=== PATIENT | male | born 1985 | race Caucasian/White ===

== ENCOUNTER 2019-06-15 21:31 | Emergency (ER) | payer BC, SELFPAY ==
[2019-06-15] VITALS (15 sets, daily range): BP systolic 116–137; BP diastolic 66–91; PULSE 70–92; RESP 12–25; TEMP 36.6; O2SAT 95–100
--- NOTE | 2019-06-15 21:47 | W.ED.GENAD ---
Discharge Plan Disposition Patient Disposition: HOME Condition: Stable Discharge Details Chief Complaint: Dizzy/Sync Clinical Impression: Syncope Primary Care Provider: Unknown,Unknown ED Provider: Reyna Morales Home Meds and New Rx's Prescriptions: Continued omeprazole 20 MG capsule,delayed release(DR/EC) 20 mg PO DAILY AM RF: 0 ondansetron 4 MG tablet,disintegrating 4 mg PO Q6H PRNQty: 8 RF: 0 Discharge Instructions Instructions: Syncope (ED) Additional Instructions: Follow up with primary care provider in 3-5 days. Return to ED sooner if any worsening or concerns. Increase oral fluids. Return to the ED immediately if any recurrent syncopal episodes, chest pain or shortness of breath. Stand Alone Forms: Work Release Medical Decision Making 33-year-old male presents to the ER after a syncopal episode which occurred earlier this afternoon. Patient states that he was sitting at his desk became lightheaded dizzy and diaphoretic and awoke slumped over onto the desk. He denies any chest pain or shortness of breath or headache. No incontinence of bowel or bladder. Upon arrival he says he feels okay. He has had 1 similar episode approximately 4 years previously. None since then. Denies any intolerance to exercise. No significant past medical history. He states his mom is diabetic and has some weird heart thing. Denies any abdominal pain nausea vomiting diarrhea or dysuria. TECHNIQUE: Imaging protocol: XR of the chest Views: 2 views. COMPARISON: No relevant prior studies available. FINDINGS: Lungs: Lungs are adequately inflated and symmetric. No focal consolidation or pulmonary edema. Pleural space: No pleural effusion. No pneumothorax. Heart/Mediastinum: Cardiomediastinal contours within normal limits. Bones/joints: No acute osseous finding. Soft tissues: No focal soft tissue abnormailty. IMPRESSION: No acute findings. Thank you for allowing us to participate in the care of your patient. Dictated and Authenticated by: Viraj Bueno MD 06/15/2019 10:43 PM Eastern Time ([place] & [place]) TECHNIQUE: Imaging protocol: Computed tomography of the head without contrast. COMPARISON: No relevant prior studies available. FINDINGS: Brain: Normal volume for age. No hemorrhage. No significant white matter disease. No edema. Ventricles: Unremarkable. No ventriculomegaly. Bones/joints: Unremarkable. No acute fracture. Sinuses: Mucous retention cyst noted within the right maxillary sinus. Paranasal sinuses otherwise well aerated without air-fluid level. Mastoid air cells: No mastoid effusion. Orbits: Unremarkable. Soft tissues: Mild posterior, midline subcutaneous soft tissue edema along the superior skull. IMPRESSION: No acute intracranial finding. Thank you for allowing us to participate in the care of your patient. Dictated and Authenticated by: Viraj Bueno MD 06/15/2019 10:46 PM Eastern Time ([place] & [place]) At this time there is no specific reason to explain his syncopal episode. Instructed to follow-up with his PCP and to return if he has any recurrent syncopal episodes or chest pain or concerns. His labs including troponin were within normal limits. CT head and chest x-ray were also within normal limits. EKG was reviewed by Dr. Beal and is normal sinus rhythm no ectopy no ST elevation. This text was generated using e[employer]arm[employer] dictation system, please disregard any oddities of phrase or misspellings. Patient remained hemodynamically stable throughout stay he is alert and oriented steady gait upon discharge. At this time I feel it is safe for him to be discharged home. Lab Data Lab results reviewed: Yes I reviewed the patient's lab results. Labs: ECG Data Attestation: I personally reviewed and interpreted this ECG (s) as follows: Prior ECG tracings: not available for review HPI General Mode of arrival: ambulatory. Date/Time Provider Initiated Documentation: 06/15/19 21:39. Limitations to Documentation: no limitations. Information obtained by: patient. HPI Narrative: 33-year-old male presents to the ER after a syncopal episode which occurred earlier this afternoon. Patient states that he was sitting at his desk became lightheaded dizzy and diaphoretic and awoke slumped over onto the desk. He denies any chest pain or shortness of breath or headache. No incontinence of bowel or bladder. Upon arrival he says he feels okay. He has had 1 similar episode approximately 4 years previously. None since then. Denies any intolerance to exercise. No significant past medical history. He states his mom is diabetic and has some weird heart thing. Denies any abdominal pain nausea vomiting diarrhea or dysuria. Related Data Home Medications Medication Instructions Recorded Confirmed omeprazole 20 mg PO DAILY AM 03/24/18 03/24/18 ondansetron 4 mg PO Q6H PRN #8 tabef 07/17/17 Previous Rx's Medication Instructions Recorded ondansetron 4 mg PO Q6H PRN #8 tabef 07/17/17 Allergies Allergy/AdvReac Type Severity Reaction Status Date / Time albuterol Allergy Unverified 07/16/17 22:15 General Stated Complaint: Dizzy/Sync LES: 3 Review of Systems Narrative: Constitutional: Negative for weight loss, alert and oriented, well groomed, normal body habitus, appears comfortable. HEENT: Denies trauma, headaches, blurry vision, nasal discharge, sore throat, trouble swallowing. Chest: Denies chest pain, palpitations, irregular rhythm, hypertension. Respiratory: Denies Shortness of breath, cough, hemoptysis. GI: Denies abdominal pain, nausea, vomiting, diarrhea, constipation. : Denies dysuria, hematuria, flank pain, rectal bleeding. Neuro: Denies blurry vision, weakness, headache or facial numbness. Positive syncopal episode, positive lightheadedness. Hematologic: Denies easy bruising, intolerance to heat or cold, hair loss. PENDING SALE TO [facility] Social History Smoking/Tobacco Use Status: Current-Occasional Tobacco Type: cigars Drug use: Never Do you feel safe in your relationship?: Yes Exam Narrative Exam Narrative: Constitutional: Allert and oriented x3. Appears stated age. Normal body habitus. Head: Normocephalic, no trauma. Eyes: Pupils PERRLA, Red reflex noted, EOM's intact. Eyelids symmetrical withour lesions, discharge, or swelling. ENT: Bilateral TM's WNL, External ear normal to inspection, no mastoid TTP, swelling, or erythema, Nasal turbinates WNL, no nasal discharge. Normal dentition, Posterior pharynx WNL, no exudate. Chest: RRR, Normal S1, S2, distal pulses intact. Resp: Lungs clear to auscultation bilaterally, no wheezes, rales, or rhonchi. Musculoskeletal: Normal gait, 5/5 strength to all four extremities. Skin: No suspicious rashes or lesions. Capillary refill ?2 sec. Neurologic: Cranial nerves II-XII intact. Alert and oriented x 3. DTR's intact. Hematologic/Lymphatic: No ecchymosis, no lymphadenopathy. Course Vital Signs Vital signs: Vital Signs Temperature 36.6 C 06/15/19 21:36 Pulse 76 06/15/19 21:36 Respiratory Rate 18 06/15/19 21:36 Blood Pressure 135/76 06/15/19 21:36 Pulse Oximetry 99 06/15/19 21:36 Temperature 36.6 C 06/15/19 21:36 Temperature Source Skin 06/15/19 21:36 Pulse 76 06/15/19 21:36 Respiratory Rate 18 06/15/19 21:36 Respiratory Effort 06/15/19 21:36 Respiratory Depth Normal 06/15/19 21:36 Blood Pressure 135/76 06/15/19 21:36 Pulse Oximetry 99 06/15/19 21:36 Oxygen Delivery Method Room Air 06/15/19 21:36 Oxygen Flow Rate 0 06/15/19 21:36
[2019-06-15 22:23] LABS: Abs Immature Grans 0.02 k/cumm (0.0-0.09); Absolute Basophil Count 0.02 k/cumm (0.0-0.2); Absolute Eosinophil Count 0.18 k/cumm (0.0-0.7); Absolute Lymphocyte Count 2.38 k/cumm (1.2-3.4); Absolute Monocyte Count 0.76 k/cumm (0.11-0.7); Absolute Neutrophil Count 4.53 k/cumm (1.2-6.7); Basophils % 0.3; Eosinophils % 2.3; HCT 49.6 % (40.0-50.0); HGB 16.9 g/dL (13.5-17.5); Immature Grans % 0.3 %; Lymphocytes % 30.2; Mean Corp. HGB Concentration 34.1 g/dL (32.0-36.0); Mean Corpuscular Hemoglobin 28.4 pg (27.0-33.0); Mean Corpuscular Volume 83.4 fL (80-95); Mean Platelet Volume 9.4 fL (8.0-11.0); Monocytes % 9.6; Neutrophils % 57.3; Platelet Count 285 x1000/uL (130-400); RBC 5.95 m/cumm (4.50-6.00); RBC Distribution Width 12.4 % (11.8-14.1); White Blood Cell Count 7.89 k/cumm (4.4-10.8)
[2019-06-15 22:27] LABS: Bilirubin Negative (Negative); Blood Negative (Negative); Clarity Clear (Clear); Glucose Negative (Negative); Ketones Negative (Negative); Leukocyte Esterase Negative (Negative); Nitrite Negative (Negative); Urobilinogen 0.2 EU/dL (Up TO 0.2)
--- NOTE | 2019-06-15 22:29 | DI.RAD_ITS ---
EXAM: XR CHEST 2V PA LATERAL XR CHEST 2V PA LATERAL CLINICAL HISTORY: Syncope Syncope TECHNIQUE: 2D digital imaging was performed. COMPARISON: No exams were available for comparison FINDINGS: The heart is not enlarged. The lungs are clear and well expanded. No pleural effusion seen. Mediastin al contours appear intact. IMPRESSION: Normal chest
[2019-06-15 22:35] LABS: *AMPHETAMINES SCREEN URINE Negative (Negative); *BARBITURATES SCREEN URINE Negative (Negative); *BENZODIAZEPINES SCREEN URINE Negative (Negative); Cannabinoids THC Negative (Negative); Cocaine Screen,Urine Negative (Negative); METHADONE URINE SCREEN Negative (Negative); OPIATES URINE SCREEN Negative (Negative)
--- NOTE | 2019-06-15 22:37 | DI.CT_ITS ---
EXAM: CT HEAD WO CT HEAD WO CLINICAL HISTORY: Syncope. Syncope TECHNIQUE: Imaging Protocol: Axial computed tomography images with coronal and sagittal reformatted images were created and reviewed COMPARISON: No exams were available for comparison FINDINGS: The ventricular system is normal in appearance. No evidence of acute intracranial hemorrhage, mass effect, or midline shift. The orbital structures are unremarkable. The temporal bone structures appear intact. Calvarium: Normal. Visualized Paranasal sinuses/Mastoids: Clear except for small presumed bilateral maxillary retention cysts. IMPRESSION: Normal cranial CT. RADIATION DOSE DELIVERED: DATA REPOSITORY: All CT scans at this facility are submitted to the National Radiology Data Registry (NRDR) Dose Index Registry (DIR) with the [employer] (ACR). RADIATION OPTIMIZATION: All CT scans at this facility use at least one of these dose optimization te chniques: automated exposure control; mA and/or kV adjustment per patient size (includes targeted exa ms where dose is matched to clinical indication); or iterative reconstruction.
[2019-06-15 22:38] LABS: ALT 82 U/L (16-63); AST 29 U/L (15-37); Albumin 4.1 g/dL (3.4-5.0); Alkaline Phosphatase 90 U/L (46-116); Anion Gap 7.6 mmol/L (3-11); BUN 12 mg/dL (7-18); Bilirubin, Total 0.3 mg/dL (0.2-1.0); CO2 31.4 mmol/L (21.0-32.0); CREATININE 1.28 mg/dL (0.70-1.30); Calcium 8.5 mg/dL (8.5-10.1); Chloride 102 mmol/L (98-107); Glucose 104 mg/dL (74-106); Potassium 3.5 mmol/L (3.5-5.1); Sodium 141 mmol/L (136-145); Total Protein 8.4 g/dL (6.4-8.2)
[2019-06-15 22:40] LABS: Troponin I < 0.05 ng/Ml (<0.06)
[2019-06-15 22:42] LABS: Tricyclic Antidepressants Negative (Negative)
--- NOTE | 2019-06-15 22:44 | DI.VRAD_ITS ---
PROCEDURE INFORMATION: Exam: XR Chest, 2 Views Exam date and time: 06/15/2019 10:29 PM Age: 33 years old Clinical indication: Other: Syncope TECHNIQUE: Imaging protocol: XR of the chest Views: 2 views. COMPARISON: No relevant prior studies available. FINDINGS: Lungs: Lungs are adequately inflated and symmetric. No focal consolidation or pulmonary edema. Pleural space: No pleural effusion. No pneumothorax. Heart/Mediastinum: Cardiomediastinal contours within normal limits. Bones/joints: No acute osseous finding. Soft tissues: No focal soft tissue abnormailty. IMPRESSION: No acute findings. Dictated and Authenticated by: Viraj Bueno MD. Ordering:YOLY Orellana MD
--- NOTE | 2019-06-15 22:47 | DI.VRAD_ITS ---
PROCEDURE INFORMATION: Exam: CT Head Without Contrast Exam date and time: 06/15/2019 9:47 PM Age: 33 years old Clinical indication: Syncope and collapse TECHNIQUE: Imaging protocol: Computed tomography of the head without contrast. COMPARISON: No relevant prior studies available. FINDINGS: Brain: Normal volume for age. No hemorrhage. No significant white matter disease. No edema. Ventricles: Unremarkable. No ventriculomegaly. Bones/joints: Unremarkable. No acute fracture. Sinuses: Mucous retention cyst noted within the right maxillary sinus. Paranasal sinuses otherwise well aerated without air-fluid level. Mastoid air cells: No mastoid effusion. Orbits: Unremarkable. Soft tissues: Mild posterior, midline subcutaneous soft tissue edema along the superior skull. IMPRESSION: No acute intracranial finding. Dictated and Authenticated by: Viraj Bueno MD. Ordering:YOLY Orellana MD
== END 2019-06-15 23:10 | disposition home or self-care (01) ==
PROVIDERS: Emergency Provider Registered Nurse Emergency
DX: R55 Syncope and collapse (principal)
CPT/HCPCS: 80053; 80307; 93005; 99284; 70450; 71046; 81003; 83735; 84484; 85025; 93010

== ENCOUNTER 2021-08-19 04:22 | Outpatient (CLI) | payer BC, SELFPAY ==
[2021-08-19 13:02] LABS: Hemoglobin A1C 5.6 % (<5.7)
[2021-08-19 13:25] LABS: Calculated LDL 141 mg/dL (<100); Cholesterol 237 mg/dL (<200); HDL Cholesterol 34 mg/dL (40-60); Triglyceride 314 mg/dL (<150)
== END 2021-08-19 04:23 | disposition home or self-care (01) ==
LOC: LOS 04:23
PROVIDERS: PCP Nurse Practitioner Family; Visit Provider Nurse Practitioner Family
DX: Z13.220 Encounter for screening for lipoid disorders (principal); Z13.1 Encounter for screening for diabetes mellitus
CPT/HCPCS: 36415; 80061; 83036

== ENCOUNTER 2023-06-28 03:58 | Outpatient (CLI) | payer BC, SELFPAY ==
[2023-06-28 11:07] LABS: Calculated LDL 148 mg/dL (<100); Cholesterol 231 mg/dL (<200); HDL Cholesterol 35 mg/dL (40-60); Triglyceride 243 mg/dL (<150)
[2023-06-29 07:43] LABS: Varicella IgG Antibody Positive (See Note)
== END 2023-06-28 03:59 | disposition home or self-care (01) ==
LOC: LOS 03:59
PROVIDERS: PCP Nurse Practitioner Family; Visit Provider Nurse Practitioner Family
DX: E78.5 Hyperlipidemia, unspecified (principal); Z01.84 Encounter for antibody response examination
CPT/HCPCS: 36415; 80061; 86787

== ENCOUNTER 2025-01-14 08:26 | Day surgery (SDC) | payer OTHER, SELFPAY ==
[2025-01-14 08:42] VITALS: BP 141/79; PULSE 77; RESP 18; TEMP 36.4; O2SAT 98
[2025-01-14] MEDS: Lactated Ringers 1,000 ML 80 ML IV (08:57)
--- NOTE | 2025-01-14 09:20 | W.ANESPRE ---
General Info Date of Service Date Performed: 01/14/25 Height: 5 ft 9 in Weight: 111.5 kg Body Mass Index (BMI): 36.3 Surgical Procedure: Operation Date: 01/14/25 09:40 Proposed Procedure Side Surgeon p Vasectomy Vj Kaur MD Meds Allergies and Home Medications Allergies Allergy/AdvReac Type Severity Reaction Status Date / Time albuterol Allergy Severe Other (See Verified 01/14/25 08:41 Comment) Home Medication ?Medication ?Instructions ?Recorded famotidine-Ca carb-mag hydrox 10 1 tab PO PRN PRN 01/06/21 mg-800 mg-165 mg chewable tablet (Pepcid Complete) melatonin 10 mg tablet 10 mg PO QHS PRN 01/06/21 omeprazole magnesium 20 mg 20 mg PO DAILY #90 tabs 04/15/22 tablet,delayed release (Prilosec OTC) ondansetron HCl 4 mg tablet 4 mg PO Q8H PRN nausea and 04/27/23 vomiting #30 tabs Current Visit Medications: Current Medications Generic Name Dose Route Start Last Admin Trade Name Silvia PRN Reason Stop Dose Admin Ringer's Solution 1,000 mls @ 80 mls/hr 01/14/25 06:00 01/14/25 08:57 IV 01/14/25 23:59 80 mls/hr INFUSION BERNARD Administration IV Miscellaneous Supplies 1 each 01/14/25 06:00 Iv Access IV 01/14/25 23:59 DIRECTED BERNARD Sodium Chloride 0 ml 01/14/25 06:00 Normal Saline Flush 10 Ml Syr IV 01/14/25 23:59 PRN PRN Sodium Chloride 0 ml 01/14/25 06:00 Normal Saline 10 Ml Vial IJ 01/14/25 23:59 DIRECTED PRN Sterile Water 0 ml 01/14/25 06:00 Water,Injection,Sterile 10 Ml Vial IJ 01/14/25 23:59 DIRECTED PRN PFSH Active Problems Active Problems: Problem Status Onset Code Otalgia of left ear Acute H92.02 Lumbar pain Acute M54.50 Depression Chronic F32.A Obesity (BMI 30.0-34.9) Acute E66.9 Hyperlipidemia Acute E78.5 COVID-19 Acute U07.1 Sleep apnea Acute G47.30 Needle phobia Acute F40.298 GERD (gastroesophageal reflux disease) Chronic K21.9 Syncope Chronic R55 Surgical History Surgical History H/O tooth extraction Tobacco Smoking/Tobacco Use Status: Never Passive smoking exposure: No Second hand exposure: Yes Alcohol Alcohol Intake: current Alcohol intake frequency: a few times a month Alcohol type: beer and hard liquor Substance Use Substance use: Never Substance use type: does not use Vital Signs and Lab Results Vital Signs Most Recent Vital Signs in EMR: Most Recent Vital Signs Temp Pulse Resp BP Pulse Ox 36.4 C L 77 18 141/79 H 98 01/14/25 08:42 01/14/25 08:42 01/14/25 08:42 01/14/25 08:42 01/14/25 08:42 Anesthesia Assessment and Plan Anesthesia History Personal History: No History of General Anesthesia Family History: No Family History of Anesthesia Complications Exercise Tolerance Exercise Tolerance: Metabolic Equivalents>4 Pertinent Negatives Pertinent Negatives: No Symptoms of GERD (well controlled with meds, took this am), No Major Cardiovascular Symptoms or Complaints, No Major Pulmonary Symptoms or Complaints and No History of CVA/TIA Cardiac & Pulmonary Exam Cardiac Exam: Normal S1/S2 Heart Sounds Pulmonary Exam: Clear Bilateral Breath Sounds Implantable Cardiac Device Does patient have a Pacemaker or an ICD?: No Airway Exam Known Difficult Airway: No Mallampati Class: 2 Mouth Opening: Normal (> 3cm) Thyromental Distance: Less than 3 cm Neck Range of Motion: Full ROM Neck Circumference: Normal Teeth Condition: Normal Dentition ASA Classification ASA Score: ASA 2 Emergency Case?: No NPO Status NPO Status: NPO Clears >2 hours, Solids >8 hours Anesthesia Plan Resuscitation Status: Full Code Anesthesia Technique: General Anesthesia Airway Planned: Natural Airway Monitors Used: Standard Monitors Preoperative Comments:: VINICIUS, needle phobia
[2025-01-14 09:44] VITALS: BMI 36.3
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
[2025-01-14] MEDS: Bupivacaine 0.5% Pres-Free 30 ML VIAL (10:24)
--- NOTE | 2025-01-14 10:35 | W.PM.DSUDISC ---
Date of service: 01/14/25 Discharge Plan Disposition Patient Disposition: Home Discharge Details Reason For Visit: vasectomy Attending Provider: Vj Kaur Primary Care Provider: Antonio Prasad Home Meds and New Rx's Prescriptions: No Action Pepcid Complete 10-800-165 mg tablet,chewable 1 tab PO PRN PRN melatonin 10 mg tablet 10 mg PO QHS PRN omeprazole magnesium [Prilosec OTC] 20 mg tablet,delayed release (DR/EC) 20 mg PO DAILY Qty: 90 4RF ondansetron HCl 4 mg tablet 4 mg PO Q8H PRN (Reason: nausea and vomiting) Qty: 30 0RF Discharge Instructions Additional Instructions: No straining or lifting over 10 pounds for the first 48 hours. Wear tight supportive undergarments. Use ice packs to the scrotum (a bag of frozen peas works well) on for 30 minutes and off for 30 minutes just while you are awake. After 48 hours, you can gradually increase your activity as tolerated No ejaculation for 7 days Use Tylenol and ibuprofen as needed for discomfort. If your pain is not controlled with these medications, please call our office Remember that you are not considered sterile until you bring a sample to the office and we identified the absence of sperm in your semen. The sample should be brought to the office in about 12 weeks. Activity:: no lifting over 10 pounds for 48 hours Remove Dressings/Wound Care:: 24 hours Shower/Bathe:: 24 hours Diet:: As Tolerated Discharge Orders Discharge Orders: Discharge Order (Routine); Ordered 01/14/25 Ordered By: Vj Kaur DS: Diagnosis Discharge Diagnosis (1) Encounter for vasectomy: Status: Acute
[2025-01-14 10:40] VITALS: BP 112/70; PULSE 87; RESP 16; TEMP 36; O2SAT 94
--- NOTE | 2025-01-14 10:40 | W.PM.OP ---
Operative Note Operative Note PRE-OP DIAGNOSIS: Elective sterilization POST-OP DIAGNOSIS: same PROCEDURE: vasectomy SURGEON: Vj Kaur ANESTHESIA TYPE: Local By Surgeon and General:No Airway Refer to Anesthesia Record ESTIMATED BLOOD LOSS: 5 PATHOLOGY: none sent COMPLICATIONS: None Indications: This is a 39 year old gentleman who has 3 children. He and his partner are not interested in additional pregnancies. He presents for vasectomy. Procedure Description: He was brought to the operating room on 01/14/2025. After being given general anesthesia without intubation, he was placed in the supine position. His genitalia was prepped and draped. We began on the left side and isolated the vas deferens up against the scrotal skin. The skin was infiltrated with 0.5% marcaine. The skin was then opened using a scalpel free technique. The vas deferens was grasped within a ring forceps. The vas was dissected free from its surrounding tissue. A 2 cm section of vas was then excised. Each cut end of the vas was cauterized using a hand-held Bovie. The more proximal end of the vas was buried back beneath the adventitia using a simple interrupted 4-0 chromic suture. Once hemostasis had been obtained, the skin was closed with Dermabond. The same procedure was then performed on the patient's right side. Neither the vas deferens was sent to pathology. This is the current recommendation of the [place] [employer]. The patient tolerated this procedure well. He was cautioned that he is not considered sterile until he is able to provide a semen sample that shows the absence of sperm. We recommend the sample be provided in about 12 weeks. Date of Procedure: 01/14/25
--- NOTE | 2025-01-14 11:06 | W.ANESPOSTOP ---
Postoperative Evaluation Date, Time and Location Date Performed: 01/14/25 Time Performed: 10:41 Patient Location: Day Surgery Unit Vital Signs Most Recent Imported Vital Signs: Most Recent Vital Signs Temp Pulse Resp BP Pulse Ox 36.0 C L 87 16 112/70 94 01/14/25 10:40 01/14/25 10:40 01/14/25 10:40 01/14/25 10:40 01/14/25 10:40 Pain Score Most Recent Pain Score: Most Recent Pain Score Pain Level 0 01/14/25 10:40 Assessment Mental Status: Awake (Alert & Oriented to Patient Baseline) Airway and Respiratory Function: Patent airway with normal (patient baseline) respiratory exam Cardiovascular Function: Hemodynamically Stable Hydration Status: Adequately Hydrated Nausea & Vomiting: No Nausea or Vomiting Pain: Pt. Denies Any Pain Peripheral Nerve Block: Patient did not receive a nerve block Teaching Patient Teaching: Discussed Safe Use of Pain Medication Given Likely or Known VINICIUS
[2025-01-14 11:12] VITALS: BP 112/70; PULSE 65; RESP 16; TEMP 36.2; O2SAT 97
== END 2025-01-14 11:36 | disposition home or self-care (01) ==
PROVIDERS: PCP Nurse Practitioner Family; Visit Provider Urology
PROC: (CPT 55250; principal; 2025-01-14 09:30)
DX: Z30.2 Encounter for sterilization (principal)
CPT/HCPCS: 55250; J0665; J1885; J2003; J2704

== ENCOUNTER 2025-04-08 00:41 | Outpatient (CLI) | payer OTHER, SELFPAY ==
[2025-04-08 15:45] LABS: Cholesterol 228 mg/dL (<200); HDL Cholesterol 39 mg/dL (>40)
[2025-04-08 15:47] LABS: Hemoglobin A1C 5.3 % (<5.7)
== END 2025-04-08 00:42 | disposition home or self-care (01) ==
LOC: LOS 00:42
PROVIDERS: PCP Nurse Practitioner Family; Visit Provider Nurse Practitioner Family
DX: Z13.220 Encounter for screening for lipoid disorders (principal); Z13.1 Encounter for screening for diabetes mellitus
CPT/HCPCS: 36415; 80061; 83036